=== PATIENT | female | born 1950 | race Caucasian/White ===

== ENCOUNTER 2020-11-02 10:56 | Observation (INO) | payer MEDICARE, OTHER ==
[~2020-11-02] VITALS: Ht 160 cm; Wt 64.0 kg
[~2020-11-02 10:56] MED LIST: ABILIFY5 MG PO; BUSPIRONE15 MG PO; CALCIUM1250 MG PO; CEVIMELINE HCL30 MG PO; CLONAZEPAM0.5 M1 PO; CYCLOBENZAPRINE5 MG PO; CYMBALTA60 MG PO; EMGALITY120 MG/ML; GABAPENTIN400 M2 PO; HYDROCO/APAP1 T10 PO; IMITREX100 MG PO; LIPITOR20 M1 PO; MIRALAX3350 N1 PO; NEURONTIN100 MG PO; NEURONTIN400 MG PO; NEURONTIN600 MG PO; NURTEC75 MG; PROTONIX40 M2 PO; REQUIP4 MG PO; TOPAMAX100 M1; TOPAMAX200 MG PO; ZYRTEC10 M5 PO
--- NOTE | 2020-11-02 11:00 | NUR ---
TO ROOM VIA WHEELCHAIR.
--- NOTE | 2020-11-02 11:01 | NUR ---
TO ROOM 6 FOR TRIAGE
--- NOTE | 2020-11-02 11:18 | NUR ---
PATIENT AMUBULATED IN ROOM WITHOUT ASSISTANCE OR DIZZYNESS DURING INITAL EVALUATION WITH DR PAUL. PATIENT TOLERATED WELL.
[2020-11-02 11:45] LABS: HEMATOCRIT 38.4 % (37.0-47.0); HEMOGLOBIN 11.8 g/dl (12.0-16.0); IMMATURE GRANULOCYTES 0.2 % (0.0-5.0); MEAN CELL VOLUME 100.3 fL CALC (80.0-100.0); MEAN CORPUSCULAR HGB 30.8 pG CALC (26.0-32.0); MEAN CORPUSCULAR HGB CONC 30.7 g/dL CAL (32.0-36.0); NEUT# 2.42 thou/uL (2.00-7.15); RED BLOOD COUNT 3.83 mill/uL (4.20-5.60); RED CELL DISTRI WIDTH 12.8 % (11.5-15.5)
[2020-11-02 11:51] LABS: GFR > 60 ML/MIN (>=60 (CALC)); GFR FOR AFR.AMER. > 60 ML/MIN (>=60 (CALC))
[2020-11-02 12:02] LABS: ALBUMIN 4.4 g/dL (3.2-5.0); ALKALINE PHOSPHATASE 80 u/l (38-126); ANION GAP 10 (6-22 (CALC)); BILIRUBIN, TOTAL 0.9 mg/dL (0.0-1.4); BUN 13 mg/dL (8-23); BUN/CREATININE RATIO 14 (12-20 (CALC)); CARBON DIOXIDE 27 mmol/l (22-30); CHLORIDE 103 mmol/l (95-108); CREATININE 0.9 mg/dL (0.5-1.0); GFR > 60 ML/MIN (>=60 (CALC)); GFR FOR AFR.AMER. > 60 ML/MIN (>=60 (CALC)); LIPASE 1392 u/l (23-300); MAGNESIUM 2.2 mg/dL (1.6-2.3); POTASSIUM 3.6 mmol/l (3.5-5.1); SGOT/AST 28 u/l (9-36); SODIUM 137 mmol/l (137-146); TOTAL PROTEIN 7.3 g/dL (6.3-8.2)
[2020-11-02 12:03] LABS: PROTHROMBIN TIME 10.4 SECONDS (9.0-12.5)
--- NOTE | 2020-11-02 13:25 | NUR ---
ORTHOSTATIC BLOOD PRESSURE COMPLETED, PATIENT FOUND EATING "HER SNACK" UPON ENTRY WATER AND CHIPS FROM HOME. PATIENT WATCHING TV DENIES ANY NEEDS CURRENTLY
[2020-11-02 14:41] LABS: URINE BILIRUBIN - DIPSTICK NEGATIVE (NEGATIVE); URINE BLOOD DIPSTICK NEGATIVE (NEGATIVE); URINE COLOR YELLOW; URINE GLUCOSE - DIPSTICK NEGATIVE (NEGATIVE); URINE KETONE NEGATIVE (NEGATIVE); URINE LEUK ESTERASE NEGATIVE (NEGATIVE); URINE PROTEIN - DIPSTICK NEGATIVE (NEG-TRACE); URINE SPECIFIC GRAVITY <=1.005; URINE UROBILINOGEN - DIPSTICK 0.2 E.U./dL (0.2)
[2020-11-02 14:43] LABS: URINE NITRITE - DIPSTICK NEGATIVE (Negative)
--- NOTE | 2020-11-02 18:32 | NUR ---
PATIENT STATES UNDERSTANDING OF ADMISSION AND AGREES TO STAY
--- NOTE | 2020-11-02 19:16 | NUR ---
BEDSIDE REPORT WITH JEAN MARIE FERNÁNDEZ
--- NOTE | 2020-11-02 19:30 | NUR ---
Admission Note Report Given to: JOLENE TODD Transported by: X Wheelchair Stretcher Transported with: X Nurse Transporter X Patent IV O2 X Electrical Technician Instructor Location: ICU X [facility]
--- NOTE | 2020-11-02 20:19 | NUR ---
TO FLOOR VIA WC.
[2020-11-02 20:22] VITALS: BP 142/78
--- NOTE | 2020-11-02 21:57 | NUR ---
PATIENT ARRIVED TO ROOM 278 VIA WC FROM THE ED VIA NURSE AT 2021 IN STABLE CONDITION. PATIENT IS ALERT AND ORIENTED X3. ABLE TO MAKE NEEDS KNOWN. RESPIRATIONS EASY ON ROOM AIR. HEART RATE REGULAR. ON TELEMETRY. C/O ABDOMINAL PAIN 5/10 AND HAS NOT BEEN MEDICATED FOR PAIN IN THE ED. MORPHINE 4 MG IV GIVEN WITH SOME POSITIVE EFFECT. PAIN CURRENTLY 4/10. SKIN WARM AND DRY. IVF NS AT 100ML/HR INFUSING ORDERED. ORIENTED TO ROOM AND CALL LIGHT SYSTEM. SLIPPER SOCKS IN PLACE. ASSESSMENT COMPLETE. BED IN LOW POSITION. FALL PRECAUTIONS INITIATED. CALL LIGHT WITHIN REACH.
[2020-11-03 00:30] VITALS: BP 136/79
[2020-11-03 04:00] VITALS: BP 121/73
[2020-11-03 05:08] LABS: HEMOGLOBIN 10.8 g/dl (12.0-16.0); MEAN CELL VOLUME 99.2 fL CALC (80.0-100.0); MEAN CORPUSCULAR HGB 30.6 pG CALC (26.0-32.0); MEAN CORPUSCULAR HGB CONC 30.9 g/dL CAL (32.0-36.0); RED BLOOD COUNT 3.53 mill/uL (4.20-5.60); RED CELL DISTRI WIDTH 12.8 % (11.5-15.5)
[2020-11-03 05:29] LABS: ANION GAP 9 (6-22 (CALC)); BUN 7 mg/dL (8-23); BUN/CREATININE RATIO 11 (12-20 (CALC)); CARBON DIOXIDE 25 mmol/l (22-30); CHLORIDE 108 mmol/l (95-108); CREATININE 0.7 mg/dL (0.5-1.0); GFR > 60 ML/MIN (>=60 (CALC)); GFR FOR AFR.AMER. > 60 ML/MIN (>=60 (CALC)); LIPASE 266 u/l (23-300); MAGNESIUM 1.9 mg/dL (1.6-2.3); POTASSIUM 3.5 mmol/l (3.5-5.1); SODIUM 138 mmol/l (137-146)
[2020-11-03 07:40] VITALS: BP 98/56
--- NOTE | 2020-11-03 07:50 | NUR ---
ASSESSMENT IS COMPLETED:IV SITE IS FREE FROM REDNESS OR EDEMA. HR IS REG,PULSES ARE STRONG X4, ABD IS SOFT WITH ACTIVE BS. BREATH SOUNDS ARE CLEAR,BILATERALLY. TELE MONITOR IN PLACE.
[2020-11-03] MEDS ORDERED: MECLIZINE25 MG PO (10:32)
[2020-11-03] MEDS ORDERED: ZOFRAN4 MG/TAB PO (10:40)
[2020-11-03 11:13] VITALS: BP 116/70
--- NOTE | 2020-11-03 12:30 | NUR ---
IV SITE AND TELE MONITOR DISCONTINUED FOR DISCHARGE. ALL INSTRUCTIONS GIVEN AND VERBALIZED UNDERSTANDING. Discharge instructions given. Patient verbalizes understanding of same. Discharged in stable condition via Wheelchair to Home with family. All belongings sent with pt.
[2020-11-04] MEDS ORDERED: OMEPRAZOLE20 MG PO (09:54)
[2020-11-04] MEDS ORDERED: CYCLOBENZAPRINE10 MG PO (09:55)
== END 2020-11-03 12:25 | disposition home or self-care (01) ==
LOC: ED 10:56 → ED-I 17:52 → ED 18:04 → MS2 18:05
PROVIDERS: Nurse Practitioner; ADMIT Internal Medicine; ATTEND Internal Medicine
PROC: 3E0234Z Introduction of Serum, Toxoid and Vaccine into Muscle, Percutaneous Approach (ICD-10-PCS; principal; 2020-11-03)
DX: K85.90 Acute pancreatitis without necrosis or infection, unspecified (principal); R42 Dizziness and giddiness; M79.7 Fibromyalgia; G62.9 Polyneuropathy, unspecified; K11.7 Disturbances of salivary secretion; F41.9 Anxiety disorder, unspecified; F32.9 Major depressive disorder, single episode, unspecified; M54.2 Cervicalgia; M54.9 Dorsalgia, unspecified; G89.29 Other chronic pain; Z23 Encounter for immunization; Z20.822 Contact with and (suspected) exposure to COVID-19
CPT/HCPCS: G0378; J1650; Q9967; S0164